=== PATIENT | female | born 1985 | race African-American/Black ===

== ENCOUNTER 2022-05-02 11:13 | Emergency (ER) | payer OTHER ==
[2022-05-02 11:40] VITALS: BMI 41.5
[2022-05-02] MEDS ORDERED: SODIUM CHLORIDE 0.9% 500 ML INFUS.BAG IV ONE ×2 (12:03→15:14)
[2022-05-02 13:01] LABS: VENOUS BASE EXCESS -3.2 mmol/L (-2-2); VENOUS PCO2 42.7 mmHg (38-52); VENOUS PH 7.339 (7.310-7.410)
[2022-05-02 13:03] LABS: BASO % 0.7 % (0-2.0); EOS % 1.5 % (0-4.5); HEMATOCRIT 41.6 % (32.4-45.2); HEMOGLOBIN 13.3 GM/dL (10.7-15.3); LYMPH % 34.6 % (8-40); MCH 25.3 pg (25.7-33.7); MEAN PLT VOLUME 9.3 fl (7.5-11.1); MONO % 4.6 % (3.8-10.2); NEUT % 58.6 % (42.8-82.8); PLATELET COUNT 217 10^3/uL (134-434); RBC 5.26 M/mm3 (3.60-5.2); WHITE BLOOD COUNT 7.8 K/mm3 (4.0-10.0)
[2022-05-02 13:57] LABS: ALBUMIN 4.3 g/dl (3.4-5.0); BILIRUBIN,TOTAL 0.4 mg/dL (0.2-1); CALCIUM 9.9 mg/dL (8.5-10.1); CREATININE 0.8 mg/dL (0.55-1.3); TOT PROT 8.4 g/dl (6.4-8.2)
[2022-05-02 15:12] LABS: EPI CELLS 12 /uL (0-25.1); HYALINE CASTS 0 /uL (0-3.1); PH,URINE 5.5 (5.0-8.0); URINE APPEARANCE Clear; URINE BACTERIA 264 /uL (0-1359); URINE BILIRUBIN Negative (NEGATIVE); URINE COLOR Yellow; URINE GLUCOSE (UA) >=1000 (NEGATIVE); URINE KETONE 80 (NEGATIVE); URINE LEUK ESTERASE Negative (NEGATIVE); URINE NITRITE Negative (NEGATIVE); URINE PROTEIN Negative (NEGATIVE); URINE RBC 14 /uL (0-23.9); URINE UROBILINOGEN 0.2 mg/dL (0.2-1.0); URINE WBC 35 /uL (0-25.8)
[2022-05-02 16:38] VITALS: TEMP 97.7
[2022-05-02 18:04] VITALS: BP 115/72; PULSE 87
== END 2022-05-02 18:25 | disposition home or self-care (01) ==
LOC: JER 11:13
DX: E11.65 Type 2 diabetes mellitus with hyperglycemia (principal)
CPT/HCPCS: 36415; 80053; 81003; 82010; 82803; 82962; 84703; 85025; 87086; 87186; 93005; 93010; 99284-25